=== PATIENT | male | born 1965 | race Caucasian/White ===

== ENCOUNTER 2019-05-15 16:07 | Inpatient (IN) | payer BC ==
[~2019-05-15] VITALS: Ht 180.3 cm; Wt 103.4 kg
[2019-05-15 04:00] VITALS: BP 103/72; BP 99/67
[~2019-05-15 16:07] MED LIST: AZITHROMYCIN 2250 MG PO; CARVEDILOL12.5 MG PO; CEFUROXIME250 MG PO; COREG6.25 MG PO; COZAAR 25 MG TA25 M1 PO; DUONEB 2.5-0.5 M3 ML INH; GLUCOPHAGE500 MG PO; INVOKANA100 MG PO; LANTUSSOLASTAR SQ; LASIX 40 MG TAB40 M2 PO; POTASSIUM20 PO; PREDNISONE 10 M10 MG PO; TRULICITY0.75 MG/0. SQ
[2019-05-15 16:16] VITALS: BP 94/68
[2019-05-15] MEDS ORDERED: ENTRESTO 24 MG1 EACH PO (16:25)
[2019-05-15] MEDS ORDERED: JARDIANCE10 MG PO (16:25)
[2019-05-15 17:01] LABS: ABSOLUTE BASOPHILS 0.1 thou/uL (0.0-0.2); ABSOLUTE EOSINOPHILS 0.1 thou/uL (0.0-0.7); ABSOLUTE LYMPHOCYTES 0.7 thou/uL (0.8-5.3); ABSOLUTE MONOCYTES 0.5 thou/uL (0.0-1.2); ABSOLUTE NEUTROPHILS 3.3 thou/uL (1.6-8.1); BASOPHILS 2.8 %; EOSINOPHILS 2.6 %; HEMATOCRIT 40.9 % (42.0-52.0); HEMOGLOBIN 13.9 gm/dL (14.0-18.0); MCHC 34.1 g/dL (28.0-37.0); MONOCYTES 10.7 %; NUCLEATED RBCS 0 /100WBC; PLATELET COUNT* 178 thou/uL (150-400); POLYS 69.9 %; RBC 4.81 mil/uL (4.50-6.00); RDW-CV 16.4 % (10.5-14.5); WBC 4.7 thou/uL (4.0-11.0)
[2019-05-15 17:10] LABS: CALCIUM 8.6 mg/dL (8.5-10.1); CREATININE 1.1 mg/dL (0.6-1.3); POTASSIUM 4.3 mmol/L (3.5-5.1)
[2019-05-15 17:14] LABS: APTT 26.8 Seconds (25.0-31.3); INR 1.1; PROTIME 11.2 Seconds (9.20-11.50)
[2019-05-15 17:21] LABS: ALBUMIN 3.6 g/dL (3.4-5.0); TOTAL BILIRUBIN 1.1 mg/dL (<0.1-1.0); TOTAL PROTEIN 6.7 g/dL (6.4-8.2)
[2019-05-15 20:08] VITALS: BP 102/71
[2019-05-15 20:20] VITALS: BP 98/63
[2019-05-15] MEDS ORDERED: TOPROL XL25 MG PO (20:46)
[2019-05-16] VITALS: BP 99/67
[2019-05-16 07:50] VITALS: BP 98/73
--- NOTE | 2019-05-16 10:44 | EKG ---
[place] [address] ELECTROCARDIOGRAM REPORT Name: ADELITATAMMIE Room: [address] IN [facility]#: [id number] Admission: 05/15/19 Attend Phys: Jimena Ellington, Discharge: Date of : 61 Date of Service: 05/15/19 1651 Report #: [id number] THIS REPORT FOR: //name// [facility] ED Test Date: 2019-05-15 Test Time: 16:51:53 Pat Name: TAMMIE UREÑA Department: Room: [facility] Gender: M Rnfa: LUDY : 1965 Requested By: Brannon Adhikari Order Number: [id number] MD: Pollo Ferrera Measurements Intervals [place] Rate: 98 P: 45 AL: 173 QRS: 19 QRSD: 158 T: 54 QT: 406 QTc: 519 Interpretive Statements Sinus rhythm LBBB Compared to ECG 05/11/2016 13:27:28 no change Electronically Signed On 05-16-2019 10:43:34 [employer] OPERATOR by Pollo Ferrera [email or web address] <ELECTRONICALLY SIGNED> By: Pollo Ferrera MD, FAC 05/16/19 1043 1651 1651 Pollo Ferrera MD, [facility] /EPI
[2019-05-16 12:00] VITALS: BP 104/75
--- NOTE | 2019-05-16 13:52 | 2DMMODE ---
[place] [address] 2 D/M-MODE ECHOCARDIOGRAM Name: TAMMIE UREÑA Room: [address] IN [facility]#: [id number] Admission: 05/15/19 Attend Phys: Jimena Ellington, Discharge: Date of : 61 Date of Service: 05/16/19 1351 Report #: [id number] THIS REPORT FOR: cc: Sruthi Mathews,Sruthi Sheikh,Plolo Orellana MD [facility] ~ APPROVED REPORT Study performed: 05/16/2019 11:16:07 EXAM: Comprehensive 2D, Doppler, and color-flow Echocardiogram Patient Location: In-Patient Room #: [facility] Status: routine BSA: 2.23 HR: 104 bpm BP: 99/67 mmHg Rhythm: NSR Other Information Study Quality: Excellent Indications Dyspnea 2D Dimensions IVSd: 10.62 (7-11mm) LVOT Diam: 20.65 (18-24mm) LVDd: 59.96 mm PWd: 10.12 (7-11mm) Ascending Ao: 29.36 (22-36mm) LVDs: 50.68 (25-40mm) Aortic Root: 29.64 mm Volumes Left Atrial Volume (Systole) LA ESV Index: 42.40 mL/m2 Aortic Valve AoV Peak Tc.: 0.98 m/s AO Peak Gr.: 3.82 mmHg LVOT Max P.40 mmHg AO Mean Gr.: 2.36 mmHg LVOT Mean P.21 mmHg LVOT Max V: 0.77 m/s AO V2 VTI: 14.06 cm LVOT Mean V: 0.51 m/s KI (VTI): 3.29 cm2 LVOT V1 VTI: 13.81 [place] [address] 2 D/M-MODE ECHOCARDIOGRAM Name: TAMMIE UREÑA Room: [address] IN [facility]#: [id number] Admission: 05/15/19 Attend Phys: Jimena Ellington, Discharge: Date of : 61 Date of Service: 05/16/19 1351 Report #: [id number] Mitral Valve E/A Ratio: 1.06 MV Decel. Time: 154.40 ms MV E Max Tc.: 1.30 m/s MV PHT: 44.78 ms MVA (PHT): 4.91 cm2 Pulmonary Valve PV Peak Tc.: 0.87 m/s PV Peak Gr.: 3.01 mmHg Tricuspid Valve RAP Estimate: 5.00 mmHg TR Peak Gr.: 36.26 mmHg RVSP: 41.00 mmHg PA Pressure: 41.00 mmHg Left Ventricle Left ventricle is mildly dilated. There is global hypokinesis of the left ventricle. There is normal left ventricular wall thickness. Left ventricular systolic function is severely decreased. LVEF is 25-30%. Right Ventricle The right ventricle is normal size. The right ventricular systolic function is normal. Atria Left atrium is mild to moderately dilated. The right atrium size is normal. Aortic Valve The aortic valve is normal in structure. No aortic regurgitation is present. There is no aortic valvular stenosis. Mitral Valve The mitral valve is normal in structure. Moderately mitral regurgitation. No evidence of mitral valve stenosis. Tricuspid Valve The tricuspid valve is normal in structure. Mild tricuspid regurgitation. estimated pa pressure 45 mm Hg Pulmonic Valve The pulmonary valve is normal in structure. Trace pulmonic regurgitation[place] [address] 2 D/M-MODE ECHOCARDIOGRAM Name: KHUSHBUTAMMIE BLAIR Janeth Room: [address] IN [facility].#: [id number] Admission: 05/15/19 Attend Phys: Jimena Ellington, Discharge: Date of : 61 Date of Service: 05/16/19 1351 Report #: [id number] The aortic root is normal in size. IVC is normal in size and collapses >50% with inspiration. Pericardium There is no pericardial effusion. <Conclusion> Left ventricle is mildly dilated. LVEF is 25-30%. Left atrium is mild to moderately dilated. Moderately mitral regurgitation. Mild tricuspid regurgitation. estimated pa pressure 45 mm Hg <ELECTRONICALLY SIGNED> By: Pollo Ferrera MD, FACC 05/16/19 135 135 135 Pollo Ferrera MD, FACC /INF
--- NOTE | 2019-05-16 15:16 | CON ---
[address] [address] CONSULTATION Name: TAMMIE UREÑA Room: [address] IN .R.#: [id number] Admission: 05/15/19 Attend Phys: Jimena Ellington MD Discharge: Date of : 61 Report #: [id number] THIS REPORT FOR: //name// cc: Sruthi Mathews Anna S. DO THIS REPORT FOR: //name// CC: Sruthi Goldberg DATE OF SERVICE: 05/16/2019 CARDIOLOGY CONSULTATION HISTORY OF PRESENT ILLNESS: The patient is a 53-year-old white male with a history of a cardiomyopathy, who I was asked to see in the hospital today after complained of being short of breath. The history is obtained from the patient as well as some old records. The patient was initially diagnosed with nonischemic cardiomyopathy in [facility]. He was told that he had an ejection fraction of only 20%-25%. He apparently had a heart catheterization that showed no significant coronary artery disease. He denies ever been told he needed a defibrillator placed. He was placed on medications and he notes his ejection fraction eventually normalized. Recently, he has been followed by my partner, Dr. Woody. Dr. Woody just saw him in March. The patient has been placed on Entresto, but developed low blood pressure and he was taken off of Entresto. The patient stays fairly active at work. He actually just saw my nurse practitioner last week and was taken off Entresto because of low blood pressure. However, he notes that last weekend, he developed a headache when sleep. He then had increasing shortness of breath and orthopnea, but denied any edema, chest pain, palpitations, syncope or noncompliance. PAST MEDICAL HISTORY: He has had back surgery. He has a history of diabetes. MEDICATIONS: Include Trulicity, Jardiance, Lasix 20 mg a day, insulin, metformin, Toprol-XL, potassium 1 a day. ALLERGIES: He has no known drug allergies. FAMILY HISTORY: Negative for heart disease. SOCIAL HISTORY: He is . He and his live in [place]. He works as a mechanical maintenance supervisor. He quit smoking 3 years ago. He has a history of excessive alcohol intake including a 6-pack of beer a day, 3-4 drinks of alcohol a day with whiskey. He no longer abuses alcohol. [place] [address] CONSULTATION Name: TAMMIE UREÑA Room: [address]#: [id number] Admission: 05/15/19 Attend Phys: Jimena Ellington MD Discharge: Date of : 61 Report #: [id number] REVIEW OF SYSTEMS: He has had no history of stroke, asthma, peptic ulcer disease, liver disease, kidney disease, cancer, psychiatric illness or chronic skin condition. PHYSICAL EXAMINATION: GENERAL: Revealed a middle-aged male, lying in bed, appeared in no acute distress. VITAL SIGNS: He had a blood pressure of 100/60, pulse is 90, he is afebrile. HEENT: He was anicteric. Conjunctivae pink. Mucous membranes moist. NECK: Veins are nondistended. No carotid bruits. CHEST: Clear to auscultation. CARDIOVASCULAR: Regular rate and rhythm, S3 gallop. ABDOMEN: Soft. EXTREMITIES: Had no edema. Dorsalis pedis pulse 1+ bilaterally. SKIN: Cool and dry. NEUROLOGIC: Nonfocal. RADIOLOGICAL DATA: His ECG shows a sinus rhythm with a left bundle branch block that is noted to be old. His workup, he had a nuclear stress test in 2017 here at [place] that showed a defect in the anteroseptal wall with some periinfarct ischemia. Ejection fraction was only 38%. Echocardiogram in 2017 showed an ejection fraction of 30%-35% with left ventricular hypertrophy. His x-rays, he had a portable chest x-ray in the Emergency Room yesterday that showed normal heart size, clear lung plasencia, small effusion. CT scan of the chest using a PE protocol showed no pulmonary embolus, evidence of pneumonitis and small effusions. CT scan of the abdomen was performed with contrast because of nausea and vomiting that showed no acute abnormality. LABORATORY DATA: Sodium 138, potassium 4.3, BUN 25, creatinine 1.1. Liver function studies were normal. Troponin 0.06. BNP 2473. White blood cell count 4.7, hemoglobin 13.9. IMPRESSION AND RECOMMENDATIONS: 1. Dilated nonischemic cardiomyopathy. The patient cannot tolerate an MITUL inhibitor nor ARB because of low blood pressure. I would consider switching the patient from metoprolol to carvedilol. I will continue Lasix and give Zaroxolyn as needed for increasing shortness of breath. I would consider adding digoxin. 2. Diabetes. 3. Previous tobacco abuse. 4. History of alcohol abuse. <ELECTRONICALLY SIGNED> By: Pollo Ferrera MD, [facility] 05/16/19 1516 0930 1024Daraymond Ferrera MD, FACC /nt
[2019-05-16 20:00] VITALS: BP 89/52
[2019-05-17] VITALS (7 sets, daily range): BP systolic 83–97; BP diastolic 56–72
[2019-05-17 05:12] LABS: ANION GAP 10 mmol/L (7-16); BUN 34 mg/dL (7-18); CALCIUM 8.8 mg/dL (8.5-10.1); CHLORIDE 100 mmol/L (98-107); CHOLESTEROL 194 mg/dL (<200); CO2 29 mmol/L (21-32); CREATININE 1.3 mg/dL (0.6-1.3); GLUCOSE 85 mg/dL (70-99); HDL CHOLESTEROL 55 mg/dL (>40); LDL CHOLESTEROL 130 mg/dL (<100); POTASSIUM 4.1 mmol/L (3.5-5.1); SODIUM 139 mmol/L (136-145); TC:HDL 3.5 Ratio (Not establshd); TRIGLYCERIDE 46 mg/dL (<150); VLDL 9 mg/dL (<40)
[2019-05-17 05:13] LABS: SERUM ASSESSMENT CLEAR
[2019-05-18 00:20] VITALS: BP 108/72
[2019-05-18 02:07] LABS: GLYCOHEMOGLOBIN (HGB A1C) 8.4 % (4.8-5.6)
[2019-05-18 04:44] VITALS: BP 116/77
[2019-05-18 05:34] LABS: ALBUMIN 3.5 g/dL (3.4-5.0); CALCIUM 8.7 mg/dL (8.5-10.1); CREATININE 1.2 mg/dL (0.6-1.3); MAGNESIUM 2.5 mg/dL (1.8-2.4); PHOSPHORUS* 3.8 mg/dL (2.5-4.9); POTASSIUM 3.8 mmol/L (3.5-5.1)
[2019-05-18 08:00] VITALS: BP 110/74
[2019-05-18 09:31] VITALS: BP 110/74
[2019-05-18] MEDS ORDERED: CARVEDILOL12.5 MG PO (12:09)
[2019-05-18] MEDS ORDERED: SPIRONOLACTONE25 M1 PO (12:11)
[2019-05-18] MEDS ORDERED: LANOXIN 0.25M0.25 M1 PO (12:12)
== END 2019-05-18 13:30 | disposition home or self-care (01) | DRG 293 ==
LOC: M.ERS 16:07 → M.2W 17:56 → M.TBA-ER 17:56 → M.2W 20:35
PROVIDERS: Family Medicine; Internal Medicine Cardiovascular Disease; ADMIT Internal Medicine
DX: I11.0 Hypertensive heart disease with heart failure (principal); I50.23 Acute on chronic systolic (congestive) heart failure; I42.0 Dilated cardiomyopathy; E11.9 Type 2 diabetes mellitus without complications; E78.5 Hyperlipidemia, unspecified; I27.20 Pulmonary hypertension, unspecified; I34.0 Nonrheumatic mitral (valve) insufficiency; I44.7 Left bundle-branch block, unspecified; Z86.718 Personal history of other venous thrombosis and embolism; Z87.01 Personal history of pneumonia (recurrent); Z79.84 Long term (current) use of oral hypoglycemic drugs; Z79.899 Other long term (current) drug therapy; Z79.4 Long term (current) use of insulin; Z87.891 Personal history of nicotine dependence